=== PATIENT | male | born 1980 | race Caucasian/White ===

== ENCOUNTER → 2016-07-28 | Outpatient (CLI) | payer BC | LOC: MW.CHIM 08:56 | PROVIDERS: ATTEND Internal Medicine | DX: M10.9 Gout, unspecified (principal) | CPT/HCPCS: 36415; 84550 ==

== ENCOUNTER → 2016-10-06 | Outpatient (CLI) | payer BC | LOC: MW.CHIM 15:42 | PROVIDERS: ATTEND Internal Medicine | DX: M10.9 Gout, unspecified (principal) | CPT/HCPCS: 36415; 84550 ==

== ENCOUNTER → 2021-09-02 | Emergency (ER) | payer BC | LOC: MW.ED 17:39 | DX: Z53.21 Procedure and treatment not carried out due to patient leaving prior to being seen by health care provider (principal) ==

== ENCOUNTER 2021-09-03 10:08 | Emergency (ER) | payer BC ==
[2021-09-03] MEDS ORDERED: Colchicine 0.6 MG Tab PO ONE (10:33)
== END 2021-09-03 10:46 | disposition home or self-care (01) ==
LOC: MW.ED 10:08
DX: M10.9 Gout, unspecified (principal); Z79.899 Other long term (current) drug therapy; Z86.16 Personal history of COVID-19
CPT/HCPCS: 99283